=== PATIENT | male | born 1970 | race Caucasian/White ===

== ENCOUNTER 2023-04-09 15:42 | Inpatient (IN) | payer MEDICAID, SELFPAY ==
[2023-04-09] VITALS (9 sets, daily range): BP systolic 120–144; BP diastolic 61–86; PULSE 70–119; RESP 18–21; TEMP 36.6–36.8; O2SAT 87–98; BMI 29.8; BMI 34.9
--- NOTE | 2023-04-09 15:41 | ECG_ITS ---
APPROVED REPORT Exam: Resting ECG HR:107 bpm ECG Measurements Heart Rate 107 AXES KS 160 P 90 QRSd 105 QRS 89 QT 333 T 74 QTc 396 Conclusion SINUS TACHYCARDIA WITH OCCASIONAL SUPRAVENTRICULAR PREMATURE COMPLEXES ABNORMAL RHYTHM ECG UNCONFIRMED REPORT Electronically signed by : Guillermo Beck MD 04/10/2023 21:26:29
--- NOTE | 2023-04-09 16:01 | XR_ITS ---
FINAL REPORT CLINICAL HISTORY: SOA FINDINGS: PA and lateral views of the chest are obtained. There is no prior exam for comparison. The cardiac and mediastinal silhouettes are within normal limits. There are bilateral interstitial opacities which could represent interstitial edema or interstitial pneumonia. There is no pleural effusion, pneumothorax, or acute osseous abnormality. IMPRESSION: Bilateral interstitial opacities which could represent interstitial edema or pneumonia. Recommend radiographic follow-up. Authenticated and ERN
--- NOTE | 2023-04-09 16:07 | PC.NURSE ---
Spoke with Lisseth in [facility] regarding VBG
--- NOTE | 2023-04-09 16:10 | PC.NURSE ---
pt placed on 3L NC due to O2 saturation of 87 on RA
--- NOTE | 2023-04-09 16:11 | PC.NURSE ---
pt to radiology
[2023-04-09 16:18] LABS: VBG Base Excess 11.5 mmol/L (-2.4-2.3); VBG HCO3 36.5 mmol/L (23-30); VBG Oxygen Saturation 82.3 % (50-70); VBG PCO2 62.9 mmol/L (35-51); VBG PH 7.38 mmol/L (7.31-7.41); VBG PO2 46.4 mmol/L (28-40); VBG Total CO2 38.5 mmol/L (23-27)
[2023-04-09 16:18] LABS: Basophils % 0.1 % (0.1-2.0); Eosinophils # 0.1 K/mm3 (0.0-0.4); Eosinophils % 0.6 % (0.1-12.0); Hematocrit 50.1 % (42.0-52.0); Hemoglobin 15.6 g/dL (14.1-18.0); Lymphocytes # 1.1 K/mm3 (0.7-4.5); Lymphocytes % 11.8 % (10-50); Mean Corpuscular HGB Conc 31.2 g/dL (31.8-35.4); Mean Corpuscular Hemoglobin 30.2 pg (27.0-31.2); Mean Corpuscular Volume 96.6 fl (80-94); Mean Platelet Volume 7.4 fl (7.4-10.4); Monocytes # 0.7 K/mm3 (0.1-1.0); Monocytes % 6.8 % (1.7-9.3); Neutrophils # 7.6 K/mm3 (1.8-7.8); Neutrophils % 80.7 % (37.0-80.0); Platelet Count 189 K/mm3 (142-424); Red Blood Count 5.18 M/mm3 (4.60-6.20); Red Cell Distribution Width 13.8 % (11.5-17.5); White Blood Count 9.5 K/mm3 (4.8-10.8)
[2023-04-09 16:22] LABS: Alanine Aminotransferase 20 U/L (12-78); Albumin Level 3.9 g/dl (3.5-5.0); Albumin/Globulin Ratio 0.9 (1.1-1.8); Alkaline Phosphatase 92 U/L (38-126); Aspartate Amino Transferase 22 U/L (17-59); Bilirubin,Total 1.1 mg/dl (0.2-1.3); Blood Urea Nitrogen 13 mg/dl (9-20); Calcium 8.8 mg/dl (8.4-10.2); Chloride 94 mmol/L (98-107); Estimated Glomerular Filt Rate 102 ml/min (>60); GFR (African American) 124 ML/MIN (>60); Globulin 4.2 g/dL (1.3-3.2); Glucose 119 mg/dl (74-100); Potassium 3.7 mmoL/L (3.5-5.1); Sodium 139 mmol/L (136-145); Total Protein,Serum 8.1 g/dl (6.3-8.2)
[2023-04-09 16:28] LABS: D-Dimer 0.66 ug/mL (0.0-0.5)
[2023-04-09 16:29] LABS: Anion Gap 11.7 mEq/L (5-15); Carbon Dioxide 37 mmol/L (22.0-30.0)
[2023-04-09 16:35] LABS: NT Pro Brain Natriuretic Pep. 483 pg/mL (0-125)
[2023-04-09 16:36] LABS: Troponin I < 0.01 ng/ml (0.00-0.034)
[2023-04-09 16:39] LABS: Procalcitonin 0.053 ng/mL (0.0-2.0)
--- NOTE | 2023-04-09 17:00 | CT_ITS ---
PROCEDURE INFORMATION: Exam: CTA Chest Without And With Contrast Exam date and time: 04/09/2023 5:14 PM Age: 52 years old Clinical indication: Pain; Chest pressure; Additional info: Chest pain, SOA TECHNIQUE: Imaging protocol: Computed tomographic angiography of the chest without and with contrast. Exam focused on the arteries. 3D rendering (Not supervised by radiologist): MIP and/or 3D reconstructed images were created by the technologist. Radiation optimization: All CT scans at this facility use at least one of these dose optimization techniques: automated exposure control; mA and/or kV adjustment per patient size (includes targeted exams where dose is matched to clinical indication); or iterative reconstruction. Contrast material: ISOVUE 370; Contrast volume: 70 ml; Contrast route: INTRAVENOUS (IV); REPORTING DATA: Count of CT and Cardiac NM exams in prior 12 months: This patient has received 0 known CTs and 0 known cardiac nuclear medicine studies in the 12 months prior to the current study. COMPARISON: CR XR CHEST 2V 04/09/2023 4:02 PM FINDINGS: Pulmonary arteries: Normal. No pulmonary emboli. Aorta: Unremarkable. No aortic aneurysm. No aortic dissection. Lungs: There are moderate centrilobular emphysematous changes of the lungs with an apical gradient. Right middle lobe, lingular, and bibasilar tree-in-bud opacities differential diagnosis includes infectious bronchiolitis less likely aspiration bronchiolitis. Pleural spaces: Unremarkable. No pneumothorax. No pleural effusion. Heart: Unremarkable. No cardiomegaly. No pericardial effusion. Lymph nodes: Prominent mediastinal and hilar lymph nodes are likely reactive. Bones/joints: Unremarkable. No acute fracture. Soft tissues: Unremarkable. IMPRESSION: Right middle lobe, lingular, and bibasilar tree-in-bud opacities differential diagnosis includes infectious bronchiolitis less likely aspiration bronchiolitis. No CT angiography evidence of pulmonary embolism. COMMENTS: In the absence of a history or active diagnosis of lung cancer, it is recommended that this patient with emphysema be evaluated for enrollment in a low dose CT lung cancer screening program.
[2023-04-09 17:08] LABS: Lactic Acid 0.9 mmol/L (0.7-2.1)
--- NOTE | 2023-04-09 18:00 | HMH.EDCP ---
Discharge Plan Disposition Patient Disposition: Admitted Condition: Good Clinical Impressions Clinical Impression: Acute hypoxemic respiratory failure, Acute exacerbation of chronic obstructive pulmonary disease, Pneumonia of right lower lobe due to infectious organism Discharge ED Provider: Erum Pérez Chest Pain HPI General Chief Complaint: Chest Pain Stated Complaint: CP Time Seen by Provider: 04/09/23 15:43 Mode of Arrival: Ambulatory Source of Information: Patient and Spouse Limitations: No Limitations Description of Symptoms (Recalled from ER Triage Doc. by RN): 52 yo M presents to ED with c/o SOA and chest pain. pt reports SOA ongoing for 6-7 days. pt reports chest pain ongoing for the past 2-3 days. pt reports upper respiratory infection a few weeks ago. pt thought that chest pressure was indigestion, but has had no relief with otc meds. History of Present Illness HPI narrative: This patient is a 52-year-old male who denies any significant past medical history, as he states that he does not follow with a doctor, presented to the emergency department for evaluation with concern for 2 to 3 days of chest pain and shortness of breath. He states that he had an upper respiratory infection about 10 days ago and never recovered. He notes productive cough with thick sputum. He is a smoker but denies any prior diagnosis of COPD. Any exertion makes his symptoms worse, and nothing seems to significantly improve it. He denies any abdominal pain, nausea, vomiting, changes in bowel movements, leg swelling, history of blood clots or clotting disorders, or other concerns. Related Data Allergies Allergy/AdvReac Type Severity Reaction Status Date / Time No Known Allergies Allergy Unverified 09/09/17 15:27 [facility] Disclaimer: The information contained in this section may have been updated after the patient was seen, as this information can be updated by other users. Social History Smoking Status: Current every day smoker alcohol intake: never current occupational status: employed Travel in the last 8 weeks: None ROS Obtained: Yes All systems reviewed & no additional complaints except as documented 14 point review of systems obtained and negative except as mentioned in HPI. Physical Exam General General appearance: alert and in no apparent distress Head Head exam: atraumatic and normocephalic Eye Eye exam: Present normal appearance, PERRL and EOMI ENT ENT exam: Present normal exam and normal oropharynx Neck Neck exam: Present normal inspection, full ROM and trachea midline Chest Chest inspection: Present normal inspection and symmetric chest wall rise; Absent tenderness Respiratory Respiratory exam: Present wheezes, accessory muscle use, prolonged expiratory phase and other (Wheezes heard bilaterally with diminished breath sounds in the bases. Rhonchi right greater than left. Satting in the high 80s on room air requiring supplemental oxygen via nasal cannula.) Cardiovascular Cardiovascular exam: Present normal rhythm and tachycardia Abdominal Exam Abdominal exam: Present soft; Absent distention, tenderness or guarding Extremities Exam Extremities exam: Present normal inspection and full ROM Back Exam Back exam: Present normal inspection and full ROM; Absent tenderness Neurological Exam Neurological exam: Present alert, oriented X3 and CN II-XII intact; Absent motor sensory deficit Psychiatric Psychiatric exam: Present normal affect and normal mood Skin Skin exam: Present warm and dry Medical Decision Making Medical Records Medical records reviewed: Yes I reviewed the patient's medical records. Deshaun Inquiry Pt receiving controlled substance: No Vital Signs: 04/09/23 15:42 04/09/23 16:31 04/09/23 17:00 Temperature 97.8 F Temperature Source Oral Pulse Rate 75 85 Pulse Rate [Left] 70 Respiratory Rate 18 Blood Pressure 126/76 125/8
--- NOTE | 2023-04-09 19:21 | PC.NURSE ---
notified music supervisor of admission
--- NOTE | 2023-04-09 19:25 | PC.NURSE ---
OBSERVATION ADMISSION TO 200 WITH DX OF PNA, COPD TO SERVICE OF HOSPITALIST.
[2023-04-09 19:49] LABS: Troponin I < 0.01 ng/ml (0.00-0.034)
--- NOTE | 2023-04-09 19:59 | PC.NURSE ---
attempted to call report, will try again in a few minutes.
--- NOTE | 2023-04-09 20:03 | EXP.HP ---
History of Present Illness *Admission Date: 04/09/23 *Reason for visit:: SOB *History of present illness: This is a 52-year-old male with PMHx of heavy smoker, drug abuse that he states that he does not follow with a doctor, presented to the emergency department for evaluation with concern for 2 to 3 days of chest pain and shortness of breath. He states that he had an upper respiratory infection about 10 days ago and never recovered. He notes productive cough with thick sputum. He is a smoker but denies any prior diagnosis of COPD. Any exertion makes his symptoms worse, and nothing seems to significantly improve it. He denies any abdominal pain, nausea, vomiting, changes in bowel movements, leg swelling, history of blood clots or clotting disorders, or other concerns. admitted. [facility] Disclaimer: The information contained in this section may have been updated after the patient was seen, as this information can be updated by other users. Medical History (Updated 04/09/23 @ 22:12 by Syed Camargo APRN) Lip cancer Family History (Updated 04/09/23 @ 20:36 by Soraya Vo RN) Father Family history of myocardial infarction Social History (Updated 04/09/23 @ 20:39 by Soraya Vo RN) Smoking Status: Current every day smoker tobacco type: cigarettes packs per day: 2 (1.5) pack-years: 70 years smoked: 35 quit status: considering quitting second hand exposure: No alcohol intake: former current occupational status: employed Travel in the last 8 weeks: None Review of Systems Review of Systems Review of systems:: pertinent systems reviewed and negative unless documented below Meds Home Medications and Allergies Home Medications Medication Instructions Recorded Confirmed Type buprenorphine 8 mg-naloxone 2 mg 1 tab sublingual DAILY withdraw 04/09/23 04/09/23 History sublingual tablet New Prescriptions to Start Prescriptions: Allergies Allergy/AdvReac Type Severity Reaction Status Date / Time No Known Allergies Allergy Unverified 09/09/17 15:27 Exam Data for Last 24 hours Vital signs and Labs for Last 24 Hours: Temp Pulse Resp BP Pulse Ox O2 Del Method O2 Flow Rate 97.8 F 119 H 18 120/69 90 L Nasal Cannula 3 04/09/23 15:42 04/09/23 19:30 04/09/23 15:42 04/09/23 19:30 04/09/23 19:30 04/09/23 19:30 04/09/23 19:30 Laboratory Results - last 24 hr 04/09/23 16:00: WBC 9.5, RBC 5.18, Hgb 15.6, Hct 50.1, MCV 96.6 H, MCH 30.2, MCHC 31.2 L, RDW 13.8, Plt Count 189, MPV 7.4, Neut % (Auto) 80.7 H, Lymph % (Auto) 11.8, [place] % (Auto) 6.8, Eos % (Auto) 0.6, Baso % (Auto) 0.1, Neut # (Auto) 7.6, Lymph # (Auto) 1.1, [place] # (Auto) 0.7, Eos # (Auto) 0.1, Baso # (Auto) 0.0, D-Dimer 0.66 H, Sodium 139, Potassium 3.7, Chloride 94 L, Carbon Dioxide 37 H, Anion Gap 11.7, BUN 13, Creatinine 0.80, Estimated GFR 102, Est GFR ( Amer) 124, Glucose 119 H, Calcium 8.8, Total Bilirubin 1.1, AST 22, ALT 20, Alkaline Phosphatase 92, Troponin I < 0.01, NT-Pro-B Natriuret Pep 483 H, Total Protein 8.1, Albumin 3.9, Globulin 4.2 H, Albumin/Globulin Ratio 0.9 L, Procalcitonin 0.053 04/09/23 16:01: VBG pH 7.38, VBG pCO2 62.9 H, VBG pO2 46.4 H, VBG HCO3 36.5 H, VBG Total CO2 38.5 H, VBG O2 Saturation 82.3 H, VBG Base Excess 11.5 H 04/09/23 16:39: Lactate 0.9 04/09/23 19:10: Troponin I < 0.01 I & O for Last 24 hours: Intake & Output 04/06/23 04/07/23 04/08/23 04/09/23 23:59 23:59 23:59 23:59 Weight 99.79 kg Constitutional Constitutional: mild distress *Routine HEENT Exam Head: Present normocephalic and atraumatic Eye: Present EOMI, PERRL and normal accommodation ENT: Present mucous membranes moist and mucous membranes dry *Routine Neck Exam Neck: Present supple, full ROM and trachea midline *Routine Respiratory Exam Respiratory: Present rhonchi, diminished air movement, normal respiratory effort, able to speak in complete sentences and symmetric chest movement *Routin
--- NOTE | 2023-04-09 20:05 | PC.NURSE ---
report given to Kira PATE
--- NOTE | 2023-04-09 20:09 | PC.NURSE ---
1999 received phone report from Jodi RN/ed nurse. 52 tyo male. Diagnosis SOA/CP/CHF. NKA. Dr Wells admitting. Can come up by W/C with 02 support.
--- NOTE | 2023-04-09 20:24 | PC.NURSE ---
2020 PATIENT ARRIVED TO THE FLOOR VIA W/C WITH 02 AT 3LNC. ADMITTED TO ROOM 200.
--- NOTE | 2023-04-09 20:37 | PC.NURSE ---
pt arrived via wheelchair @ 2030
--- NOTE | 2023-04-09 20:51 | PC.NURSE ---
Pt notified of need for sputum sample. Specimen cup left at bedside and pt encouraged to call out when able to give sample. Pt verbalizes understanding.
[2023-04-09 23:04] LABS: Troponin I < 0.01 ng/ml (0.00-0.034)
[2023-04-10] VITALS (10 sets, daily range): BP systolic 110–151; BP diastolic 64–90; PULSE 60–101; RESP 18–22; TEMP 36.3–36.9; O2SAT 89–95; BMI 34.2
--- NOTE | 2023-04-10 06:02 | PC.NURSE ---
PATIENT'S 02 SAT WAS NOT STAYING AT 90 OR ABOVE. R.T. NOTIFIED AND PATIENT PLACED ON VENTI MASK 15L/50%. 02 SATS AT 94% AT THIS TIME. SPOUSE SAYS THE PATIENT IS A MOUTH BREATHER. PATIENT REPORTS SOA WITH EXERTION. PRODUCTIVE COUGH, SM THICK YELLOW SPUTUM.
[2023-04-10 06:40] LABS: Alanine Aminotransferase 19 U/L (12-78); Albumin Level 3.5 g/dl (3.5-5.0); Albumin/Globulin Ratio 0.9 (1.1-1.8); Alkaline Phosphatase 80 U/L (38-126); Aspartate Amino Transferase 21 U/L (17-59); Bilirubin,Total 0.6 mg/dl (0.2-1.3); Blood Urea Nitrogen 15 mg/dl (9-20); Calcium 8.5 mg/dl (8.4-10.2); Chloride 96 mmol/L (98-107); Creatinine Clearance Estimated 179 mL/min (50-200); Estimated Glomerular Filt Rate 102 ml/min (>60); GFR (African American) 124 ML/MIN (>60); Glucose 156 mg/dl (74-100); Magnesium 1.9 mg/dl (1.6-2.3); Potassium 3.9 mmoL/L (3.5-5.1); Sodium 141 mmol/L (136-145); Total Protein,Serum 7.5 g/dl (6.3-8.2)
[2023-04-10 06:47] LABS: Anion Gap 10.9 mEq/L (5-15); Carbon Dioxide 38 mmol/L (22.0-30.0)
--- NOTE | 2023-04-10 08:06 | EXP.PN ---
Subjective *Date: 04/10/23 *Time: 13:39 Interval history: This morning he is saturating 95% on 15L via Venturi mask. He feels betters. Less dyspnea. Less cough. Exam Data for Last 24 hours Vital signs and Labs for Last 24 Hours: Temp Pulse Resp BP Pulse Ox O2 Del Method O2 Flow Rate 97.3 F L 81 18 127/83 95 Venturi Mask 15 04/10/23 04:00 04/10/23 04:00 04/10/23 04:00 04/10/23 04:00 04/10/23 04:00 04/10/23 06:25 04/10/23 06:25 Laboratory Results - last 24 hr 04/09/23 16:00: WBC 9.5, RBC 5.18, Hgb 15.6, Hct 50.1, MCV 96.6 H, MCH 30.2, MCHC 31.2 L, RDW 13.8, Plt Count 189, MPV 7.4, Neut % (Auto) 80.7 H, Lymph % (Auto) 11.8, [place] % (Auto) 6.8, Eos % (Auto) 0.6, Baso % (Auto) 0.1, Neut # (Auto) 7.6, Lymph # (Auto) 1.1, [place] # (Auto) 0.7, Eos # (Auto) 0.1, Baso # (Auto) 0.0, D-Dimer 0.66 H, Sodium 139, Potassium 3.7, Chloride 94 L, Carbon Dioxide 37 H, Anion Gap 11.7, BUN 13, Creatinine 0.80, Estimated GFR 102, Est GFR ( Amer) 124, Glucose 119 H, Calcium 8.8, Total Bilirubin 1.1, AST 22, ALT 20, Alkaline Phosphatase 92, Troponin I < 0.01, NT-Pro-B Natriuret Pep 483 H, Total Protein 8.1, Albumin 3.9, Globulin 4.2 H, Albumin/Globulin Ratio 0.9 L, Procalcitonin 0.053 04/09/23 16:01: VBG pH 7.38, VBG pCO2 62.9 H, VBG pO2 46.4 H, VBG HCO3 36.5 H, VBG Total CO2 38.5 H, VBG O2 Saturation 82.3 H, VBG Base Excess 11.5 H 04/09/23 16:39: Lactate 0.9 04/09/23 19:10: Troponin I < 0.01 04/09/23 22:10: Troponin I < 0.01 04/10/23 06:15: Sodium 141, Potassium 3.9, Chloride 96 L, Carbon Dioxide 38 H, Anion Gap 10.9, BUN 15, Creatinine 0.80, Estimated Creat Clear 179, Estimated GFR 102, Est GFR ( Amer) 124, Glucose 156 H D, Calcium 8.5, Magnesium 1.9, Total Bilirubin 0.6, AST 21, ALT 19, Alkaline Phosphatase 80, Total Protein 7.5, Albumin 3.5 D, Globulin 4.0 H, Albumin/Globulin Ratio 0.9 L I & O for Last 24 hours: Intake & Output 04/07/23 04/08/23 04/09/23 04/10/23 23:59 23:59 23:59 23:59 Intake Total 360 / 360 Output Total 2650 / 2650 Balance -2290 / -2290 Weight 117.027 kg 114.872 kg Constitutional Constitutional: no acute distress *Routine HEENT Exam Head: Present normocephalic Eye: Present EOMI and PERRL ENT: Present mucous membranes moist *Routine Neck Exam Neck: Present supple; Absent lymphadenopathy *Routine Respiratory Exam Respiratory: Present accessory muscle use and CTA bilaterally *Routine Cardiovascular Exam Cardiovascular: Present RRR *Routine Abdominal Exam Abdominal: Present soft and normoactive bowel sounds; Absent tenderness *Routine Extremities Exam Extremities: Absent cyanosis, clubbing or edema *Routine Skin Exam Skin: Present warm; Absent rash *Routine Neurological Exam Neurological: Present alert and oriented X3 Assessment and Plan *Assessment and plan (1) Acute hypoxemic respiratory failure: Status: Acute Category: Medical Code(s): J96.01 - Acute respiratory failure with hypoxia (2) Acute exacerbation of chronic obstructive pulmonary disease: Status: Acute Category: Medical Code(s): J44.1 - Chronic obstructive pulmonary disease with (acute) exacerbation (3) Pneumonia of right lower lobe due to infectious organism: Status: Acute Category: Medical Code(s): J18.9 - Pneumonia, unspecified organism (4) Smoker: Status: Acute Category: Social Hx Code(s): F17.200 - Nicotine dependence, unspecified, uncomplicated (5) BMI 34.0-34.9,adult: Status: Acute Category: Medical Code(s): Z68.34 - Body mass index [BMI] 34.0-34.9, adult (6) Non compliance with medical treatment: Status: Acute Category: Medical Code(s): Z91.199 - Patient's noncompliance with other medical treatment and regimen due to unspecified reason Plan Mr. Baptiste is a 52 year old male with past medical history of cigarette nicotine dependence (70 pack year history) and polysubstance abuse who presen
[2023-04-10 09:09] LABS: Basophils % 0.1 % (0.1-2.0); Hematocrit 47.8 % (42.0-52.0); Hemoglobin 15.3 g/dL (14.1-18.0); Lymphocytes % 6.8 % (10-50); Mean Corpuscular Hemoglobin 30.1 pg (27.0-31.2); Mean Corpuscular Volume 94.1 fl (80-94); Mean Platelet Volume 10.8 fl (7.4-10.4); Monocytes % 4.3 % (1.7-9.3); Neutrophils % 87.8 % (37.0-80.0); Platelet Count 220 K/mm3 (142-424); Red Blood Count 5.08 M/mm3 (4.60-6.20); Red Cell Distribution Width 13.5 % (11.5-17.5)
[2023-04-10 09:10] LABS: Lymphocytes # 0.5 K/mm3 (0.7-4.5); Monocytes # 0.3 K/mm3 (0.1-1.0)
[2023-04-10 09:11] LABS: MANUAL DIFFERENTIAL MANUAL DIFFERENTIAL (MANUAL DIFF)
--- NOTE | 2023-04-10 09:27 | HMH.PHAINT1 ---
Pharmacy Intervention Comments: Patient's home medication reviewed and verified with external pharmacy. -Sagar Gillespie, Pharm Student
[2023-04-10 09:47] LABS: Lymphocytes % 9 % (10-50); Monocytes % 3 % (2-9); Neutrophils % 88 % (42-76); Platelet Estimate Normal; RBC Morphology Normal; Total Cells Counted 100
--- NOTE | 2023-04-10 09:49 | PC.NURSE ---
Courtesy Round Patient resting in bed with visitor at bedside. Trash and linens checked . Ice water refilled .No other needs at this time. Call light within reach.
[2023-04-10 10:40] LABS: White Blood Count 7.9 K/mm3 (4.8-10.8)
--- NOTE | 2023-04-10 11:36 | PC.NURSE ---
RESP CARE NOTE: Pt with 50% venturi mask, SPO2 at 91%. Will continue to continuously monitor pts SPO2.
--- NOTE | 2023-04-10 13:50 | PC.NURSE ---
PT. IS UP AD AD SALVADOR, ON A VENTI MASK 15 L AT 50%, FAMILY PRESENT, AOX4, 20G L AC SL, SPUTUM SENT, RAPID COVID FLU SENT, PT. IS AWARE WE NEED A URINE SAMPLE.
[2023-04-10 14:00] LABS: Coronavirus 19, PCR Not Detected (NotDetected); Influenza A, PCR Not Detected (NotDetected); Influenza B, PCR Not Detected (NotDetected)
--- NOTE | 2023-04-10 15:06 | PC.NURSE ---
SRNA NOTE: urine specimen collected and sent to lab per cindy argueta RN request @ [phone] 04/10/23. Jeanne VILLALOBOS
[2023-04-10 15:22] LABS: Amphetamine/Metha Screen,Urine Negative ng/ml (<1000)
[2023-04-10 15:22] LABS: Adenovirus,PCR Not Detected (NotDetected); Bordetella Pertussis Not Detected (NotDetected); Chlamydophila Pneumoniae, PCR Not Detected (NotDetected); Coronavirus 19, PCR Not Detected (NotDetected); Coronavirus 229E Not Detected (NotDetected); Coronavirus NL63 Not Detected (NotDetected); Coronavirus OC43 Not Detected (NotDetected); Coronovirus HKU1,PCR Not Detected (NotDetected); Human Metapneumovirus Not Detected (NotDetected); Influenza A, PCR Not Detected (NotDetected); Influenza AH1, 2009 Not Detected (NotDetected); Influenza AH1, PCR Not Detected (NotDetected); Influenza AH3,PCR Not Detected (NotDetected); Influenza B, PCR Not Detected (NotDetected); Mycoplasma Pneumoniae, PCR Not Detected (NotDetected); Parainfluenza 1, PCR Not Detected (NotDetected); Parainfluenza 2, PCR Not Detected (NotDetected); Parainfluenza 3, PCR Not Detected (NotDetected); Parainfluenza 4, PCR Not Detected (NotDetected); Respiratory Syncytial Virus Not Detected (NotDetected)
[2023-04-10 15:23] LABS: Barbiturates Screen,Urine Negative ng/ml (<200); Benzodiazepines Screen,Urine Negative ng/ml (<200)
[2023-04-10 15:24] LABS: Cannabinoid Screen,Urine Negative ng/ml (<50)
[2023-04-10 15:25] LABS: Cocaine Screen,Urine Negative ng/ml (<300); Methadone Screen,Urine Negative ng/ml (<300)
[2023-04-10 15:26] LABS: Opiate Screen,Urine Positive ng/ml (<300); Phencyclidine Screen,Urine Negative ng/ml (<25)
[2023-04-10 17:11] LABS: Rhinovirus/Enterovirus Detected (NotDetected)
[2023-04-11] VITALS (10 sets, daily range): BP systolic 105–137; BP diastolic 40–81; PULSE 62–89; RESP 18–22; TEMP 35.9–37; O2SAT 92–95; BMI 34.5
--- NOTE | 2023-04-11 04:08 | PC.NURSE ---
02 SATS CONTINUE TO DROP DOWN INTO MID 80s WITH MINIMAL EXERTION. PATIENT ADMITS TO SOA WHEN MOVING ABOUT. FAMILY MEMBER AT BEDSIDE.
[2023-04-11 05:50] LABS: Hemoglobin A1C 5.9 % (4.0-6.0)
[2023-04-11 05:52] LABS: Blood Urea Nitrogen 15 mg/dl (9-20); Calcium 8.6 mg/dl (8.4-10.2); Creatinine Clearance Estimated 207 mL/min (50-200); Estimated Glomerular Filt Rate 119 ml/min (>60); GFR (African American) 144 ML/MIN (>60)
[2023-04-11 06:22] LABS: Anion Gap 7.7 mEq/L (5-15); Carbon Dioxide 37 mmol/L (22.0-30.0); Chloride 98 mmol/L (98-107); Glucose 118 mg/dl (74-100); Potassium 3.7 mmoL/L (3.5-5.1); Sodium 139 mmol/L (136-145)
[2023-04-11 06:48] LABS: Chol/HDL Ratio 5.4 (1-3.5); Cholesterol 134 mg/dl (140-200); HDL Cholesterol 25 mg/dl (40-60); Triglycerides 108 mg/dl (30-150); VLDL Cholesterol 22 mg/dL (0-40)
[2023-04-11 06:59] LABS: Direct LDL Cholesterol 93.95 mg/dL (100-129)
[2023-04-11 07:25] LABS: Hematocrit 47.3 % (42.0-52.0); Mean Corpuscular HGB Conc 31.7 g/dL (31.8-35.4); Mean Corpuscular Hemoglobin 29.9 pg (27.0-31.2); Mean Corpuscular Volume 94.2 fl (80-94); Mean Platelet Volume 10.5 fl (7.4-10.4); Platelet Count 210 K/mm3 (142-424); Red Blood Count 5.02 M/mm3 (4.60-6.20); Red Cell Distribution Width 13.8 % (11.5-17.5); White Blood Count 9.5 K/mm3 (4.8-10.8)
[2023-04-11 07:26] LABS: Basophils % 0.2 % (0.1-2.0); Lymphocytes # 1.3 K/mm3 (0.7-4.5); Lymphocytes % 13.7 % (10-50); Monocytes # 0.7 K/mm3 (0.1-1.0); Monocytes % 7.3 % (1.7-9.3); Neutrophils # 7.4 K/mm3 (1.8-7.8); Neutrophils % 78.3 % (37.0-80.0)
--- NOTE | 2023-04-11 11:26 | EXP.PN ---
Subjective *Date: 04/11/23 *Time: 11:26 Interval history: No acute events overnight Continues to have a mild productive cough Dyspnea is decreasing He has been ambulating within the room Exam Data for Last 24 hours Vital signs and Labs for Last 24 Hours: Temp Pulse Resp BP Pulse Ox O2 Del Method O2 Flow Rate 97.5 F L 62 20 105/60 L 92 L Venturi Mask 15 04/11/23 08:00 04/11/23 08:00 04/11/23 08:00 04/11/23 08:00 04/11/23 08:00 04/11/23 09:00 04/11/23 09:00 FiO2 50 04/11/23 08:00 Laboratory Results - last 24 hr 04/10/23 13:17: Chlamy pneumoniae PCR Not detected, Adenovirus (PCR) Not detected, B. pertussis DNA (PCR) Not detected, Coronavirus OC43 (PCR) Not detected, Coronavirus HKU1 (PCR) Not detected, Coronavirus 229E (PCR) Not detected, SARS-CoV-2 (PCR) Not detected, Coronavirus NL63 (PCR) Not detected, Human Metapneumovir PCR Not detected, Influenza A (H1) PCR Not detected, Influ A (H1N1/09) PCR Not detected, Influenza A (H3) PCR Not detected, Influenza Type A (PCR) Not detected, Influenza Type B (PCR) Not detected, M. pneumoniae (PCR) Not detected, Parainfluenza 1 (PCR) Not detected, Parainfluenza 2 (PCR) Not detected, Parainfluenza 3 (PCR) Not detected, Parainfluenza 4 (PCR) Not detected, RSV (PCR) Not detected, Entero/Rhino (PCR) Detected A 04/10/23 13:42: SARS-CoV-2 (PCR) Not detected, Influenza A Untype (PCR) Not detected, Influenza Type B (PCR) Not detected 04/10/23 15:05: Urine Opiates Screen Positive H, Urine Methadone Screen Negative, Ur Barbituates Screen Negative, Ur Phencyclidine Scrn Negative, Ur Amphetamines Screen Negative, U Benzodiazepines Scrn Negative, Urine Cocaine Screen Negative, U Marijuana (THC) Screen Negative 04/11/23 05:22: WBC 9.5, RBC 5.02, Hgb 15.0, Hct 47.3, MCV 94.2 H, MCH 29.9, MCHC 31.7 L, RDW 13.8, Plt Count 210, MPV 10.5 H, Neut % (Auto) 78.3, Lymph % (Auto) 13.7, [place] % (Auto) 7.3, Eos % (Auto) 0.0 L, Baso % (Auto) 0.2, Neut # (Auto) 7.4, Lymph # (Auto) 1.3, [place] # (Auto) 0.7, Eos # (Auto) 0.0, Baso # (Auto) 0.0, Sodium 139, Potassium 3.7, Chloride 98, Carbon Dioxide 37 H, Anion Gap 7.7, BUN 15, Creatinine 0.70, Estimated Creat Clear 207, Estimated GFR 119, Est GFR ( Amer) 144, Glucose 118 H D, Hemoglobin A1c 5.9, Calcium 8.6, Triglycerides 108, Cholesterol 134 L, LDL Cholesterol Direct 93.95 L, VLDL Cholesterol 22, HDL Cholesterol 25 L, Cholesterol/HDL Ratio 5.4 H I & O for Last 24 hours: Intake & Output 04/08/23 04/09/23 04/10/23 04/11/23 23:59 23:59 23:59 23:59 Intake Total 2270 / 2710 680 / 680 Output Total 3051 / 3051 Balance -781 / -341 680 / 680 Weight 117.027 kg 114.872 kg 115.836 kg Microbiology Reports for the Last 24 Hours: Microbiology 04/10/23 11:45 Sputum - Expectorated Sputum Gram Stain - Final Constitutional Constitutional: no acute distress *Routine HEENT Exam Head: Present normocephalic Eye: Present EOMI and PERRL ENT: Present mucous membranes moist *Routine Neck Exam Neck: Present supple; Absent lymphadenopathy *Routine Respiratory Exam Respiratory: Present prolonged expiratory phase, wheezes, crackles and able to speak in complete sentences *Routine Cardiovascular Exam Cardiovascular: Present RRR *Routine Abdominal Exam Abdominal: Present soft and normoactive bowel sounds; Absent tenderness *Routine Extremities Exam Extremities: Absent cyanosis, clubbing or edema *Routine Skin Exam Skin: Present warm; Absent rash *Routine Neurological Exam Neurological: Present alert and oriented X3 Assessment and Plan *Assessment and plan (1) Acute hypoxemic respiratory failure: Status: Acute Category: Medical Code(s): J96.01 - Acute respiratory failure with hypoxia (2) Acute exacerbation of chronic obstructive pulmonary disease: Status: Acute Category: Medical Code(s): J44.1 - Chronic obstructive pulmonary disease with (acute) exacerbation (3) Pneumonia of right lower lobe due to infectio
--- NOTE | 2023-04-11 11:48 | EXP.PULM.CON ---
History of Present Illness History of present illness: Ms. Baptiste is a 55-year-old male current smoker greater than [id number] smoking history, family history of asthma in his brother presented to the hospital complaining worsening respiratory status for the last 2 to 3 weeks progressively getting worse eventually needing oxygen supplementation antibiotics and pulmonary was called for further evaluation. [facility] Disclaimer: The information contained in this section may have been updated after the patient was seen, as this information can be updated by other users. Medical History (Updated 04/11/23 @ 13:45 by Aliyah Cerna MD) Acute and chronic respiratory failure with hypoxia Lip cancer Pneumonia Viral pneumonia Family History (Updated 04/09/23 @ 20:36 by Soraya Vo RN) Father Family history of myocardial infarction Social History (Updated 04/09/23 @ 20:39 by Soraya Vo RN) Smoking Status: Current every day smoker tobacco type: cigarettes packs per day: 2 (1.5) pack-years: 70 years smoked: 35 quit status: considering quitting second hand exposure: No alcohol intake: former current occupational status: employed Travel in the last 8 weeks: None Review of Systems Constitutional Constitutional: Reports anorexia, Reports body ache(s) and Reports fatigue Eyes Eyes: Denies eye discharge, Denies dry eyes, Denies irritation and Denies itchy eyes ENT Ears, Nose, Mouth, and Throat: Denies epistaxis, Denies facial pain, Denies lip swelling and Denies throat swelling *Cardiovascular Cardiovascular: Reports dyspnea and Reports dyspnea on exertion *Respiratory Respiratory: Reports chest congestion, Reports cough, Reports dyspnea, Reports dyspnea on exertion, Reports excessive phlegm production and Reports wheezing *Gastrointestinal Gastrointestinal: Denies abdominal pain, Denies belching and Denies cramping *Musculoskeletal Musculoskeletal: Reports back pain, Reports myalgias and Reports other (No small joint swelling or Pain) Psychiatric Psychiatric: Denies homicidal ideation and Denies suicidal ideation Endocrine Endocrine: Reports fatigue and Denies heat intolerance Hematologic/Lymphatic Hematologic/Lymphatic: Denies easy bleeding and Denies lymphadenopathy Allergic/Immunologic Allergic/Immunologic: Denies itchy eyes, Denies lip swelling, Denies throat swelling and Reports wheezing Pulmonology Exam Inpatient Vital signs and Labs for Last 24 Hours: Temp Pulse Resp BP Pulse Ox O2 Del Method O2 Flow Rate 97.5 F L 62 20 105/60 L 92 L Venturi Mask 15 04/11/23 08:00 04/11/23 08:00 04/11/23 08:00 04/11/23 08:00 04/11/23 08:00 04/11/23 09:00 04/11/23 09:00 FiO2 50 04/11/23 08:00 Laboratory Results - last 24 hr 04/10/23 13:17: Chlamy pneumoniae PCR Not detected, Adenovirus (PCR) Not detected, B. pertussis DNA (PCR) Not detected, Coronavirus OC43 (PCR) Not detected, Coronavirus HKU1 (PCR) Not detected, Coronavirus 229E (PCR) Not detected, SARS-CoV-2 (PCR) Not detected, Coronavirus NL63 (PCR) Not detected, Human Metapneumovir PCR Not detected, Influenza A (H1) PCR Not detected, Influ A (H1N1/09) PCR Not detected, Influenza A (H3) PCR Not detected, Influenza Type A (PCR) Not detected, Influenza Type B (PCR) Not detected, M. pneumoniae (PCR) Not detected, Parainfluenza 1 (PCR) Not detected, Parainfluenza 2 (PCR) Not detected, Parainfluenza 3 (PCR) Not detected, Parainfluenza 4 (PCR) Not detected, RSV (PCR) Not detected, Entero/Rhino (PCR) Detected A 04/10/23 13:42: SARS-CoV-2 (PCR) Not detected, Influenza A Untype (PCR) Not detected, Influenza Type B (PCR) Not detected 04/10/23 15:05: Urine Opiates Screen Positive H, Urine Methadone Screen Negative, Ur Barbituates Screen Negative, Ur Phencyclidine Scrn Negative, Ur Amphetamines Screen Negative, U Benzodiazepines Scrn Negative, Urine Cocaine Screen Negative, U Marijuana (THC) Screen Negative 04/11/23 05:22: WBC 9.5, RBC 5.02, Hgb 15.0, Hct 4
--- NOTE | 2023-04-11 18:45 | PC.NURSE ---
PT SAT UP TO CHAIR FOR AROUND 3 HOURS TODAY AND TOLERATED WELL. SOB WITH EXERTION. MULTIPLE FAMILY MEMBERS AT BEDSIDE T/O SHIFT.
[2023-04-12] VITALS (16 sets, daily range): BP systolic 98–155; BP diastolic 63–80; PULSE 55–100; RESP 16–20; TEMP 36.4–36.8; O2SAT 84–96; BMI 34.4
[2023-04-12 06:37] LABS: Anion Gap 9.4 mEq/L (5-15); Blood Urea Nitrogen 14 mg/dl (9-20); Calcium 8.8 mg/dl (8.4-10.2); Carbon Dioxide 33 mmol/L (22.0-30.0); Chloride 101 mmol/L (98-107); Creatinine Clearance Estimated 206 mL/min (50-200); Estimated Glomerular Filt Rate 119 ml/min (>60); GFR (African American) 144 ML/MIN (>60); Glucose 114 mg/dl (74-100); Potassium 3.4 mmoL/L (3.5-5.1); Sodium 140 mmol/L (136-145)
--- NOTE | 2023-04-12 07:00 | PC.NURSE ---
late entry- room air sat 84% at rest
[2023-04-12 07:04] LABS: Basophils % 0.3 % (0.1-2.0); Eosinophils # 0.1 K/mm3 (0.0-0.4); Eosinophils % 1.2 % (0.1-12.0); Hematocrit 48.7 % (42.0-52.0); Hemoglobin 15.3 g/dL (14.1-18.0); Lymphocytes # 1.4 K/mm3 (0.7-4.5); Mean Corpuscular HGB Conc 31.3 g/dL (31.8-35.4); Mean Corpuscular Hemoglobin 29.8 pg (27.0-31.2); Mean Corpuscular Volume 95.2 fl (80-94); Mean Platelet Volume 8.7 fl (7.4-10.4); Monocytes # 0.4 K/mm3 (0.1-1.0); Monocytes % 5.5 % (1.7-9.3); Platelet Count 222 K/mm3 (142-424); Red Blood Count 5.12 M/mm3 (4.60-6.20); Red Cell Distribution Width 14.1 % (11.5-17.5)
--- NOTE | 2023-04-12 07:17 | EXP.ACUTE.PN ---
Subjective *Date: 04/12/23 *Time: 15:49 Interval history: Update from last 24 hours: - On Venturi mask at 15 L/min - Remains afebrile - Potassium 3.4 today -Sputum culture with gram-positive cocci-04/10/2023. Blood culture remains negative Subjective: Shortness of breath improving. Still on Venturi mask No fevers Medical Exam Vital signs and Labs for Last 24 Hours: Vital Signs Temp Pulse Pulse Resp BP Pulse Ox O2 Del Method 04/12/23 07:00 Venturi Mask 04/12/23 05:00 Venturi Mask 04/12/23 04:00 57 L 04/12/23 04:00 97.5 F L 100 H 20 98/63 L 96 Venturi Mask 04/12/23 02:45 Venturi Mask 04/12/23 00:48 Venturi Mask 04/12/23 00:00 65 04/12/23 00:07 68 04/12/23 00:07 73 04/11/23 23:56 97.5 F L 70 20 124/62 93 L Venturi Mask 04/11/23 23:00 Venturi Mask 04/11/23 21:00 Venturi Mask 04/11/23 20:00 93 L Venturi Mask 04/11/23 20:00 69 04/11/23 20:00 98.6 F 70 22 120/68 93 L Venturi Mask 04/11/23 18:37 71 04/11/23 18:37 73 04/11/23 18:37 93 L Venturi Mask 04/11/23 18:03 Venturi Mask 04/11/23 17:00 Venturi Mask 04/11/23 15:00 Venturi Mask 04/11/23 16:00 70 04/11/23 12:00 70 04/11/23 16:00 97.7 F 72 18 135/77 94 L Non-Rebreather 04/11/23 08:00 67 04/11/23 12:40 Venturi Mask 04/11/23 11:00 Venturi Mask 04/11/23 12:00 97.9 F 68 20 137/81 92 L Venturi Mask 04/11/23 11:55 69 04/11/23 11:55 69 04/11/23 11:55 92 L Venturi Mask 04/11/23 09:00 Venturi Mask 04/11/23 08:00 Venturi Mask 04/11/23 08:00 97.5 F L 62 20 105/60 L 92 L Venturi Mask O2 Flow Rate FiO2 04/12/23 07:00 15 04/12/23 05:00 15 04/12/23 04:00 04/12/23 04:00 15 04/12/23 02:45 15 04/12/23 00:48 15 04/12/23 00:00 04/12/23 00:07 04/12/23 00:07 04/11/23 23:56 15 04/11/23 23:00 15 04/11/23 21:00 15 04/11/23 20:00 15 50 04/11/23 20:00 04/11/23 20:00 15 04/11/23 18:37 04/11/23 18:37 04/11/23 18:37 15 50 04/11/23 18:03 15 04/11/23 17:00 15 04/11/23 15:00 15 04/11/23 16:00 04/11/23 12:00 04/11/23 16:00 04/11/23 08:00 04/11/23 12:40 15 04/11/23 11:00 15 04/11/23 12:00 15 04/11/23 11:55 04/11/23 11:55 04/11/23 11:55 15 50 04/11/23 09:00 15 04/11/23 08:00 15 50 04/11/23 08:00 15 Intake and Output 04/11/23 04/11/23 04/12/23 15:59 23:59 07:59 Intake Total 480 / 1620 120 / 1620 580 / 580 Output Total 1001 / 1001 401 / 401 Balance 480 / 619 -881 / 619 179 / 179 Intake: Intake, Oral Amount 480 / 1520 120 / 1520 480 / 480 Intake, Total IV Amount 100 / 100 Ceftriaxone Sodium 2 gm In 0.9 100 / 100 % Sodium Chloride 100 ml @ 200 mls/hr IV Q24H [facility] Rx#:[id number] Output: Output, Urine Amount 1001 / 1001 401 / 401 Other: Number of Voids 2 Number of Unmeasured Voids 2 1 Weight 115.303 kg Patient Weight 07/22/23 23:59 Weight 115.303 kg Laboratory Results - last 24 hr 04/11/23 05:22: WBC 9.5, RBC 5.02, Hgb 15.0, Hct 47.3, MCV 94.2 H, MCH 29.9, MCHC 31.7 L, RDW 13.8, Plt Count 210, MPV 10.5 H, Neut % (Auto) 78.3, Lymph % (Auto) 13.7, [place] % (Auto) 7.3, Eos % (Auto) 0.0 L, Baso % (Auto) 0.2, Neut # (Auto) 7.4, Lymph # (Auto) 1.3, [place] # (Auto) 0.7, Eos # (Auto) 0.0, Baso # (Auto) 0.0 04/12/23 05:52: WBC 8.0, RBC 5.12, Hgb 15.3, Hct 48.7, MCV 95.2 H, MCH 29.8, MCHC 31.3 L, RDW 14.1, Plt Count 222, MPV 8.7, Neut % (Auto) 75.0, Lymph % (Auto) 18.0, [place] % (Auto) 5.5, Eos % (Auto) 1.2, Baso % (Auto) 0.3, Neut # (Auto) 6.0, Lymph # (Auto) 1.4, [place] # (Auto) 0.4, Eos # (Auto) 0.1, Baso # (Auto) 0.0, Sodium 140, Potassium 3.4 L, Chloride 101, Carbon Dioxide 33 H, Anion Gap 9.4, BUN 14, Creatinine 0.70, Estimated Creat Clear 206, Estimated GFR 119, Est GFR ( Amer) 144, Gluco
--- NOTE | 2023-04-12 09:14 | EXP.PHA.PN ---
Subjective *Date: 04/12/23 *Time: 09:14 Medical Exam Vital signs and Labs for Last 24 Hours: Vital Signs Temp Pulse Pulse Resp BP Pulse Ox O2 Del Method 04/12/23 06:00 62 04/12/23 06:00 68 04/12/23 06:00 92 L Venturi Mask 04/12/23 07:55 98.0 F 69 17 121/73 Venturi Mask 04/12/23 07:00 Venturi Mask 04/12/23 05:00 Venturi Mask 04/12/23 04:00 57 L 04/12/23 04:00 97.5 F L 100 H 20 98/63 L 96 Venturi Mask 04/12/23 02:45 Venturi Mask 04/12/23 00:48 Venturi Mask 04/12/23 00:00 65 04/12/23 00:07 68 04/12/23 00:07 73 04/11/23 23:56 97.5 F L 70 20 124/62 93 L Venturi Mask 04/11/23 23:00 Venturi Mask 04/11/23 21:00 Venturi Mask 04/11/23 20:00 93 L Venturi Mask 04/11/23 20:00 69 04/11/23 20:00 98.6 F 70 22 120/68 93 L Venturi Mask 04/11/23 18:37 71 04/11/23 18:37 73 04/11/23 18:37 93 L Venturi Mask 04/11/23 18:03 Venturi Mask 04/11/23 17:00 Venturi Mask 04/11/23 15:00 Venturi Mask 04/11/23 16:00 70 04/11/23 12:00 70 04/11/23 16:00 97.7 F 72 18 135/77 94 L Non-Rebreather 04/11/23 12:40 Venturi Mask 04/11/23 11:00 Venturi Mask 04/11/23 12:00 97.9 F 68 20 137/81 92 L Venturi Mask 04/11/23 11:55 69 04/11/23 11:55 69 04/11/23 11:55 92 L Venturi Mask O2 Flow Rate FiO2 04/12/23 06:00 04/12/23 06:00 04/12/23 06:00 50 04/12/23 07:55 04/12/23 07:00 15 04/12/23 05:00 15 04/12/23 04:00 04/12/23 04:00 15 04/12/23 02:45 15 04/12/23 00:48 15 04/12/23 00:00 04/12/23 00:07 04/12/23 00:07 04/11/23 23:56 15 04/11/23 23:00 15 04/11/23 21:00 15 04/11/23 20:00 15 50 04/11/23 20:00 04/11/23 20:00 15 04/11/23 18:37 04/11/23 18:37 04/11/23 18:37 15 50 04/11/23 18:03 15 04/11/23 17:00 15 04/11/23 15:00 15 04/11/23 16:00 04/11/23 12:00 04/11/23 16:00 04/11/23 12:40 15 04/11/23 11:00 15 04/11/23 12:00 15 04/11/23 11:55 04/11/23 11:55 04/11/23 11:55 15 50 Intake and Output 04/11/23 04/12/23 04/12/23 23:59 07:59 15:59 Intake Total 120 / 1620 820 / 820 Output Total 1001 / 1001 401 / 401 0 / 401 Balance -881 / 619 419 / 419 0 / 419 Intake: Intake, Oral Amount 120 / 1520 720 / 720 Intake, Total IV Amount 100 / 100 Ceftriaxone Sodium 2 gm In 0.9 100 / 100 % Sodium Chloride 100 ml @ 200 mls/hr IV Q24H [facility] Rx#:[id number] Output: Output, Urine Amount 1001 / 1001 401 / 401 0 / 401 Other: Number of Voids 2 Number of Unmeasured Voids 2 1 1 Weight 115.303 kg Patient Weight 04/12/23 23:59 Weight 115.303 kg Laboratory Results - last 24 hr 04/12/23 05:52: WBC 8.0, RBC 5.12, Hgb 15.3, Hct 48.7, MCV 95.2 H, MCH 29.8, MCHC 31.3 L, RDW 14.1, Plt Count 222, MPV 8.7, Neut % (Auto) 75.0, Lymph % (Auto) 18.0, [place] % (Auto) 5.5, Eos % (Auto) 1.2, Baso % (Auto) 0.3, Neut # (Auto) 6.0, Lymph # (Auto) 1.4, [place] # (Auto) 0.4, Eos # (Auto) 0.1, Baso # (Auto) 0.0, Sodium 140, Potassium 3.4 L, Chloride 101, Carbon Dioxide 33 H, Anion Gap 9.4, BUN 14, Creatinine 0.70, Estimated Creat Clear 206, Estimated GFR 119, Est GFR ( Amer) 144, Glucose 114 H, Calcium 8.8 I & O for Labs for Last 24 Hours: Intake & Output 04/09/23 04/10/23 04/11/23 04/12/23 23:59 23:59 23:59 23:59 Intake Total 2270 / 2710 1040 / 1620 820 / 820 Output Total 3051 / 3051 1001 / 1001 401 / 401 Balance -781 / -341 39 / 619 419 / 419 Weight 117.027 kg 114.872 kg 115.836 kg 115.303 kg Microbiology Reports for the Last 24 Hours: Microbiology 04/10/23 11:45 Sputum - Expectorated Sputum Gram Stain - Final 04/10/23 11:45 Sputum - Expectorated Sputum Sputum Culture - Preliminary 04/09/23 16:39 Blood Blood Culture - Preliminary NO GROWTH AFTE
--- NOTE | 2023-04-12 14:23 | PC.NURSE ---
pt is asleep lying in bed. call light is within reach and family is at BS.
[2023-04-13] VITALS (15 sets, daily range): BP systolic 113–148; BP diastolic 69–81; PULSE 63–89; RESP 17–22; TEMP 36.5–36.9; O2SAT 90–98; BMI 33.9
--- NOTE | 2023-04-13 00:53 | PC.NURSE ---
PATIENT SEEMS TO BE HOLDING HIS 02 SATS AROUND 93 % 0N 15L/40% VENTI MASK WHILE AT REST. . HIS SATS CONTINUE TO DROP TO MID 80s WHEN UP AMBULATING TO THE BATHROOM. PATIENT REPORTS HE IS SOA WHEN UP AND ABOUT. VITAL SIGNS STABLE. SIG.OTHER AT BEDSIDE
--- NOTE | 2023-04-13 06:43 | XR_ITS ---
PROCEDURE INFORMATION: Exam: XR Chest Exam date and time: 04/13/2023 7:21 AM Age: 52 years old Clinical indication: Shortness of breath and other: Copd; Additional info: Sob- copd TECHNIQUE: Imaging protocol: Radiologic exam of the chest. Views: 1 view. COMPARISON: CR XR CHEST 2V 04/09/2023 4:02 PM FINDINGS: Lungs: Linear atelectasis now present in the right perihilar region. Bibasilar atelectasis. Pleural spaces: No pleural effusion. No pneumothorax. Heart/Mediastinum: Unremarkable. No cardiomegaly. Vasculature: The aorta demonstrates mild atherosclerotic calcification. Bones/joints: Unremarkable. IMPRESSION: Increasing bilateral atelectasis.
--- NOTE | 2023-04-13 06:56 | EXP.ACUTE.PN ---
Subjective *Date: 04/13/23 *Time: 08:27 Interval history: Update from last 24 hours: -Continues to be on Venturi mask 15 L/min at 40%, sat 95%--> Able to wean to 6 L via NC -Remains afebrile Subjective: SOB improving, no fevers No chest pain Cough improved Medical Exam Vital signs and Labs for Last 24 Hours: Vital Signs Temp Pulse Pulse Resp BP Pulse Ox O2 Del Method 04/13/23 06:17 Venturi Mask 04/13/23 04:00 98.4 F 69 18 148/74 H 95 Venturi Mask 04/13/23 04:53 Venturi Mask 04/13/23 04:00 63 04/13/23 03:00 Venturi Mask 04/13/23 01:00 Venturi Mask 04/13/23 00:00 97.7 F 66 22 133/80 95 Venturi Mask 04/13/23 00:00 64 04/12/23 23:59 75 04/12/23 23:59 71 04/12/23 23:00 Venturi Mask 04/12/23 21:00 Venturi Mask 04/12/23 20:00 93 L Venturi Mask 04/12/23 20:00 77 04/12/23 19:21 98.2 F 78 16 123/67 93 L Venturi Mask 04/12/23 19:00 Venturi Mask 04/12/23 17:00 Venturi Mask 04/12/23 19:06 Venturi Mask 04/12/23 19:05 73 04/12/23 19:05 76 04/12/23 16:00 69 04/12/23 12:00 70 04/12/23 15:00 Venturi Mask 04/12/23 14:53 98.1 F 73 18 155/80 H 93 L Venturi Mask 04/12/23 13:00 Venturi Mask 04/12/23 11:00 Venturi Mask 04/12/23 12:55 71 04/12/23 12:55 71 04/12/23 12:55 94 L Venturi Mask 04/12/23 11:06 98.1 F 70 18 106/70 L 90 L Venturi Mask 04/12/23 08:00 55 L 04/12/23 07:00 84 L Room Air 04/12/23 09:00 Venturi Mask 04/12/23 08:00 92 L Venturi Mask 04/12/23 07:55 98.0 F 69 17 121/73 Venturi Mask 04/12/23 07:00 Venturi Mask O2 Flow Rate FiO2 04/13/23 06:17 15 04/13/23 04:00 04/13/23 04:53 15 04/13/23 04:00 04/13/23 03:00 15 04/13/23 01:00 15 04/13/23 00:00 04/13/23 00:00 04/12/23 23:59 04/12/23 23:59 04/12/23 23:00 15 04/12/23 21:00 15 04/12/23 20:00 15 40 04/12/23 20:00 04/12/23 19:21 04/12/23 19:00 15 04/12/23 17:00 15 04/12/23 19:06 50 04/12/23 19:05 04/12/23 19:05 04/12/23 16:00 04/12/23 12:00 04/12/23 15:00 15 04/12/23 14:53 04/12/23 13:00 15 04/12/23 11:00 15 04/12/23 12:55 04/12/23 12:55 04/12/23 12:55 50 04/12/23 11:06 04/12/23 08:00 04/12/23 07:00 04/12/23 09:00 15 04/12/23 08:00 15 50 04/12/23 07:55 04/12/23 07:00 15 Intake and Output 04/12/23 04/12/23 04/13/23 15:59 23:59 07:59 Intake Total 240 / 1880 340 / 1880 480 / 480 Output Total 0 / 1202 801 / 1202 201 / 201 Balance 240 / 678 -461 / 678 279 / 279 Intake: Intake, Oral Amount 240 / 1680 240 / 1680 480 / 480 Intake, Total IV Amount 100 / 200 Ceftriaxone Sodium 2 gm In 0.9 100 / 200 % Sodium Chloride 100 ml @ 200 mls/hr IV Q24H [facility] Rx#:[id number] Output: Output, Urine Amount 0 / 1202 801 / 1202 201 / 201 Other: Number of Voids 2 Number of Unmeasured Voids 1 1 1 Number of Bowel Movements 1 Weight 113.58 kg Patient Weight 04/13/23 23:59 Weight 113.58 kg Laboratory Results - last 24 hr 04/12/23 05:52: WBC 8.0, RBC 5.12, Hgb 15.3, Hct 48.7, MCV 95.2 H, MCH 29.8, MCHC 31.3 L, RDW 14.1, Plt Count 222, MPV 8.7, Neut % (Auto) 75.0, Lymph % (Auto) 18.0, [place] % (Auto) 5.5, Eos % (Auto) 1.2, Baso % (Auto) 0.3, Neut # (Auto) 6.0, Lymph # (Auto) 1.4, [place] # (Auto) 0.4, Eos # (Auto) 0.1, Baso # (Auto) 0.0 I & O for Labs for Last 24 Hours: Intake & Output 04/10/23 04/11/23 04/12/23 04/13/23 23:59 23:59 23:59 23:59 Intake Total 2270 / 2710 1040 / 1620 1400 / 1880 480 / 480 Output Total 3051 / 3051 1001 / 1001 1202 / 1202 201 / 201 Balance -781 / -341 39 / 619 198 / 678 279 / 279 Weight 114.872 kg 115.836 kg 115.303 kg 113.58 kg Microbiology Reports for the Last 24 Hours: Microbiology 04/10/23 11:45 Sputum - Expectorate
[2023-04-13 07:11] LABS: Anion Gap 10.4 mEq/L (5-15); Blood Urea Nitrogen 16 mg/dl (9-20); Calcium 8.9 mg/dl (8.4-10.2); Carbon Dioxide 30 mmol/L (22.0-30.0); Chloride 104 mmol/L (98-107); Creatinine Clearance Estimated 203 mL/min (50-200); Estimated Glomerular Filt Rate 119 ml/min (>60); GFR (African American) 144 ML/MIN (>60); Glucose 101 mg/dl (74-100); Potassium 4.4 mmoL/L (3.5-5.1); Sodium 140 mmol/L (136-145)
--- NOTE | 2023-04-13 17:16 | PC.NURSE ---
supplemental o2 currently 6lnc. has been sitting up to chair for most of shift. ambulating in room and to restroom independently.
[2023-04-14] VITALS (8 sets, daily range): BP systolic 121–139; BP diastolic 61–87; PULSE 67–83; RESP 16–18; TEMP 36.7–37.3; O2SAT 87–94; BMI 34.2
--- NOTE | 2023-04-14 04:30 | PC.NURSE ---
Patient has had a great night. Started shift with patient on 6L NC. RN has weaned patient to currently 1L NC. Patient stating around 94%. Patient has had no complaints and has walked around the room.
[2023-04-14 07:05] LABS: Basophils % 0.5 % (0.1-2.0); Eosinophils # 0.2 K/mm3 (0.0-0.4); Eosinophils % 2.2 % (0.1-12.0); Hematocrit 51.3 % (42.0-52.0); Hemoglobin 15.9 g/dL (14.1-18.0); Lymphocytes # 1.4 K/mm3 (0.7-4.5); Lymphocytes % 18.5 % (10-50); Mean Corpuscular HGB Conc 30.9 g/dL (31.8-35.4); Mean Corpuscular Hemoglobin 29.4 pg (27.0-31.2); Mean Corpuscular Volume 95.3 fl (80-94); Mean Platelet Volume 8.5 fl (7.4-10.4); Monocytes # 0.6 K/mm3 (0.1-1.0); Monocytes % 8.3 % (1.7-9.3); Neutrophils # 5.5 K/mm3 (1.8-7.8); Neutrophils % 70.6 % (37.0-80.0); Platelet Count 222 K/mm3 (142-424); Red Blood Count 5.39 M/mm3 (4.60-6.20); Red Cell Distribution Width 14.1 % (11.5-17.5); White Blood Count 7.8 K/mm3 (4.8-10.8)
--- NOTE | 2023-04-14 07:14 | EXP.DC.SUM ---
General Admission date:: 04/09/23 Discharge date: 04/14/23 HPI HPI HPI: This is a 52-year-old male with PMHx of heavy smoker, drug abuse that he states that he does not follow with a doctor, presented to the emergency department for evaluation with concern for 2 to 3 days of chest pain and shortness of breath. He states that he had an upper respiratory infection about 10 days ago and never recovered. He notes productive cough with thick sputum. He is a smoker but denies any prior diagnosis of COPD. Any exertion makes his symptoms worse, and nothing seems to significantly improve it. He denies any abdominal pain, nausea, vomiting, changes in bowel movements, leg swelling, history of blood clots or clotting disorders, or other concerns. admitted. Hospital Course Hospital Course Hospital Course: 52-year-old male, active smoker presents with shortness of breath. Admitted for hypoxic respiratory failure in the setting of multifocal pneumonia initially viral (entero/rhinovirus) now with superimposed gram-positive cocci bacterial pneumonia and possible underlying COPD with current active exacerbation. Tolerated antibiotics well with improvement in respiratory failure. Able to wean oxygen to nasal cannula by day of discharge. Work-up and hospital course as follows: CT chest 04/09/2020: Ruled out PE. Moderate centrilobular emphysematous changes of the lungs. Right middle lobe, lingula and basilar tree-in-bud opacities. Sputum culture 04/10/2023: Gram-positive cocci Respiratory PCR 04/10: Positive for entero/rhinovirus Mr. Baptiste was started on ceftriaxone and azithromycin along with supplemental oxygen. He was gradually able to wean off Venturi mask to nasal cannula. Stable on 2 L nasal cannula on day of discharge. Room air saturation of 87%. Discharged home with 2 L nasal cannula. Recommend following up with pulmonology in the coming weeks. We will perform PFTs and 6-minute walk test after lungs resolved from infection. Completed 5 days of ceftriaxone and azithromycin. Continue inhaler therapy at home with albuterol as needed. Spent 40 minutes in discharge counseling and direct care with patient. Exam Data for Last 24 hours Vital signs and Labs for Last 24 Hours: Temp Pulse Resp BP Pulse Ox O2 Del Method O2 Flow Rate 98.2 F 83 16 133/74 91 L Nasal Cannula 1 04/14/23 03:31 04/14/23 06:15 04/14/23 03:31 04/14/23 03:31 04/14/23 06:15 04/14/23 06:45 04/14/23 06:45 FiO2 40 04/13/23 06:00 Laboratory Results - last 24 hr 04/13/23 06:12: Sodium 140, Potassium 4.4 D, Chloride 104, Carbon Dioxide 30, Anion Gap 10.4, BUN 16, Creatinine 0.70, Estimated Creat Clear 203, Estimated GFR 119, Est GFR ( Amer) 144, Glucose 101 H, Calcium 8.9 04/14/23 06:48: WBC 7.8, RBC 5.39, Hgb 15.9, Hct 51.3, MCV 95.3 H, MCH 29.4, MCHC 30.9 L, RDW 14.1, Plt Count 222, MPV 8.5, Neut % (Auto) 70.6, Lymph % (Auto) 18.5, [place] % (Auto) 8.3, Eos % (Auto) 2.2, Baso % (Auto) 0.5, Neut # (Auto) 5.5, Lymph # (Auto) 1.4, [place] # (Auto) 0.6, Eos # (Auto) 0.2, Baso # (Auto) 0.0 I & O for Last 24 hours: Intake & Output 04/11/23 04/12/23 04/13/23 04/14/23 23:59 23:59 23:59 23:59 Intake Total 1040 / 1620 1400 / 1880 1200 / 1200 Output Total 1001 / 1001 1202 / 1202 1401 / 1601 1300 / 1300 Balance 39 / 619 198 / 678 -201 / -401 -1300 / -1300 Weight 115.836 kg 115.303 kg 113.58 kg 114.714 kg Microbiology Reports for the Last 24 Hours: Microbiology 04/10/23 11:45 Sputum - Expectorated Sputum Gram Stain - Final 04/10/23 11:45 Sputum - Expectorated Sputum Sputum Culture - Final Normal Respiratory Holly Constitutional Constitutional: no acute distress *Routine HEENT Exam Head: Present normocephalic Eye: Present EOMI and PERRL ENT: Present mucous membranes moist *Routine Neck Exam Neck: Present supple; Absent lymphadenopathy *Routine Respiratory Exam Respiratory: Present CTA bilaterally; Absent rho
[2023-04-14 07:16] LABS: Blood Urea Nitrogen 15 mg/dl (9-20); Carbon Dioxide 31 mmol/L (22.0-30.0); Chloride 103 mmol/L (98-107); Creatinine Clearance Estimated 205 mL/min (50-200); Estimated Glomerular Filt Rate 119 ml/min (>60); GFR (African American) 144 ML/MIN (>60); Glucose 102 mg/dl (74-100); Magnesium 1.9 mg/dl (1.6-2.3); Phosphorous 3.9 mg/dl (2.5-4.5); Sodium 137 mmol/L (136-145)
--- NOTE | 2023-04-14 08:34 | PC.NURSE ---
COURTESY TECH NOTE; ROUNDED ON PT 0720, PT DENIED NEED FOR DRINK, ASSISTANCE WITH RESTROOM, AND NEED TO REPOSITION IN BED. CALL LIGHT WITHIN REACH, NO FURTHER REQUESTS AT THIS TIME GRISELDA BLACK
--- NOTE | 2023-04-14 09:02 | EXP.PHA.PN ---
Subjective *Date: 04/14/23 *Time: 09:02 Medical Exam Vital signs and Labs for Last 24 Hours: Vital Signs Temp Pulse Pulse Resp BP Pulse Ox O2 Del Method 04/14/23 07:52 93 L Nasal Cannula 04/14/23 07:36 87 L Room Air 04/14/23 07:26 99.1 F 83 18 121/61 90 L Nasal Cannula 04/14/23 06:45 Nasal Cannula 04/14/23 06:15 83 04/14/23 06:15 81 04/14/23 06:15 91 L Nasal Cannula 04/14/23 04:00 67 04/14/23 03:31 98.2 F 70 16 133/74 94 L Nasal Cannula 04/14/23 05:00 Room Air 04/14/23 03:00 Nasal Cannula 04/14/23 00:00 71 04/14/23 01:00 Nasal Cannula 04/14/23 00:00 98.1 F 81 16 139/87 94 L Nasal Cannula 04/13/23 20:00 78 04/13/23 23:00 Nasal Cannula 04/13/23 23:42 72 04/13/23 23:42 74 04/13/23 21:00 Nasal Cannula 04/13/23 20:00 Nasal Cannula 04/13/23 19:30 98.4 F 83 17 131/69 91 L Nasal Cannula 04/13/23 19:02 Nasal Cannula 04/13/23 19:01 77 04/13/23 19:00 73 04/13/23 18:37 Nasal Cannula 04/13/23 16:00 70 04/13/23 16:11 Nasal Cannula 04/13/23 15:00 Nasal Cannula 04/13/23 15:02 98.3 F 69 18 133/81 98 Nasal Cannula 04/13/23 12:00 84 04/13/23 13:00 Nasal Cannula 04/13/23 11:00 Nasal Cannula 04/13/23 11:38 73 04/13/23 11:38 74 04/13/23 11:38 91 L Nasal Cannula 04/13/23 11:26 98.4 F 68 19 122/70 94 L Nasal Cannula O2 Flow Rate 04/14/23 07:52 2 04/14/23 07:36 04/14/23 07:26 5 04/14/23 06:45 1 04/14/23 06:15 04/14/23 06:15 04/14/23 06:15 1 04/14/23 04:00 04/14/23 03:31 04/14/23 05:00 04/14/23 03:00 1.5 04/14/23 00:00 04/14/23 01:00 2 04/14/23 00:00 04/13/23 20:00 04/13/23 23:00 3 04/13/23 23:42 04/13/23 23:42 04/13/23 21:00 5 04/13/23 20:00 5 04/13/23 19:30 5 04/13/23 19:02 6 04/13/23 19:01 04/13/23 19:00 04/13/23 18:37 6 04/13/23 16:00 04/13/23 16:11 6 04/13/23 15:00 6 04/13/23 15:02 5 04/13/23 12:00 04/13/23 13:00 6 04/13/23 11:00 6 04/13/23 11:38 04/13/23 11:38 04/13/23 11:38 6 04/13/23 11:26 5 Intake and Output 04/13/23 04/14/23 04/14/23 23:59 07:59 15:59 Intake Total 240 / 1200 720 / 720 Output Total 1200 / 1601 1300 / 1300 Balance -960 / -401 -580 / -580 Intake: Intake, Oral Amount 240 / 1200 720 / 720 Output: Output, Urine Amount 1200 / 1601 1300 / 1300 Other: Number of Voids 0 Number of Unmeasured Voids 1 1 Weight 114.714 kg Patient Weight 04/14/23 23:59 Weight 114.714 kg Laboratory Results - last 24 hr 04/14/23 06:48: WBC 7.8, RBC 5.39, Hgb 15.9, Hct 51.3, MCV 95.3 H, MCH 29.4, MCHC 30.9 L, RDW 14.1, Plt Count 222, MPV 8.5, Neut % (Auto) 70.6, Lymph % (Auto) 18.5, Cameron % (Auto) 8.3, Eos % (Auto) 2.2, Baso % (Auto) 0.5, Neut # (Auto) 5.5, Lymph # (Auto) 1.4, Cameron # (Auto) 0.6, Eos # (Auto) 0.2, Baso # (Auto) 0.0, Sodium 137, Potassium 4.0, Chloride 103, Carbon Dioxide 31 H, Anion Gap 7.0, BUN 15, Creatinine 0.70, Estimated Creat Clear 205, Estimated GFR 119, Est GFR ( Amer) 144, Glucose 102 H, Calcium 9.0, Phosphorus 3.9, Magnesium 1.9 I & O for Labs for Last 24 Hours: Intake & Output 04/11/23 04/12/23 04/13/23 04/14/23 23:59 23:59 23:59 23:59 Intake Total 1040 / 1620 1400 / 1880 1200 / 1200 720 / 720 Output Total 1001 / 1001 1202 / 1202 1401 / 1601 1300 / 1300 Balance 39 / 619 198 / 678 -201 / -401 -580 / -580 Weight 115.836 kg 115.303 kg 113.58 kg 114.714 kg Microbiology Reports for the Last 24 Hours: Microbiology 04/10/23 11:45 Sputum - Expectorated Sputum Gram Stain - Final 04/10/23 11:45 Sputum - Expectorated Sputum Sputum Culture - Final Normal Respiratory Holly The patient's infection will respond to the chosen ABx?: Yes (SPUTUM = NORMAL HOLLY, DIAGNOSIS PNEUMONIA, WBC W
--- NOTE | 2023-04-14 09:57 | [facility].PHAINT1 ---
Pharmacy Intervention Comments: Discharge medication reviewed with patient -Ventolin (watch for tremors and feeling jittery) -nicotine patch
--- NOTE | 2023-04-15 14:12 | CARE MANAGER ---
Attempted to contact patient related to hospital discharge and the number listed in the chart is not a working number. RIO Modi
== END 2023-04-14 11:01 | disposition home or self-care (01) | DRG 193 ==
LOC: ER 19:15 → 2ND 04-10 02:12
PROVIDERS: Internal Medicine; Nurse Practitioner Family; Admitting Provider Internal Medicine; Emergency Provider Emergency Medicine; Visit Provider Internal Medicine
DX: J15.9 Unspecified bacterial pneumonia (principal); J96.21 Acute and chronic respiratory failure with hypoxia; J44.1 Chronic obstructive pulmonary disease with (acute) exacerbation; J44.0 Chronic obstructive pulmonary disease with (acute) lower respiratory infection; J12.9 Viral pneumonia, unspecified; F17.200 Nicotine dependence, unspecified, uncomplicated; Z91.199 Patient's noncompliance with other medical treatment and regimen due to unspecified reason; F17.210 Nicotine dependence, cigarettes, uncomplicated; B34.1 Enterovirus infection, unspecified; E87.6 Hypokalemia
CPT/HCPCS: 36415; 71045; 71046; 71275; 80048; 80053; 80061; 80305; 82803; 83036; 83605; 83735; 83880; 84100; 84145; 84484; 85007; 85025; 85378; 87040; 87070; 87205; 87581; 87632; 87636; 87798; 93005; 94640; 94761; 99285; J0456; J0696; Q9967

== ENCOUNTER → 2023-04-24 16:38 | Outpatient (CLI) | payer MEDICAID, SELFPAY ==
[2023-04-24 17:14] LABS: Thyroid Stimulating Hormone 2.91 uIU/mL (0.465-4.68)
[2023-04-24 17:32] LABS: Vitamin B12 680 pg/mL (239-931)
[2023-05-01 00:15] LABS: Vitamin B1 134.9 nmol/L (66.5-200.0)
== END ==
PROVIDERS: PCP Family Medicine; Visit Provider Family Medicine
DX: R20.2 Paresthesia of skin (principal)
CPT/HCPCS: 82607; 84425; 84443

== ENCOUNTER 2024-06-28 14:18 | Outpatient (CLI) | payer MEDICAID, SELFPAY | END 2024-06-28 23:59 | disposition home or self-care (01) | LOC: RAD 14:19 | PROVIDERS: PCP Family Medicine; Visit Provider Nurse Practitioner | DX: D33.3 Benign neoplasm of cranial nerves (principal) ==